=== PATIENT | female | born 1945 | race Hispanic/Latino ===

== ENCOUNTER → 2021-07-30 | Outpatient (CLI) | payer MEDICARE ==
[~2021-07-30] MED LIST: IOHEXOL 350 MG/ML 100ML INFUS..BTL IV ONE; METOPROLOL TARTRATE 1 MG/ML 5ML VIAL IV ONE
== END | disposition home or self-care (01) ==
LOC: RAH 07:40
PROVIDERS: ATTEND Student in an Organized Health Care Education/Training Program
DX: M47.815 Spondylosis without myelopathy or radiculopathy, thoracolumbar region (principal); R07.9 Chest pain, unspecified; I51.7 Cardiomegaly; I25.84 Coronary atherosclerosis due to calcified coronary lesion
CPT/HCPCS: 75574; J3490; Q9967